=== PATIENT | male | born 1955 | race Caucasian/White ===

== ENCOUNTER → 2017-08-09 | Day surgery (SDC) | payer OTHER ==
[~2017-08-09] MED LIST: FENTANYL CITRATE/PF 100MCG/2 ML INJ ONE; MIDAZOLAM HCL 2 MG/2 ML VIAL ONE; TUMS
== END | disposition home or self-care (01) ==
LOC: OR 10:14
PROVIDERS: ATTEND Internal Medicine Gastroenterology
DX: Z12.11 Encounter for screening for malignant neoplasm of colon (principal); D12.0 Benign neoplasm of cecum; K29.50 Unspecified chronic gastritis without bleeding; K26.9 Duodenal ulcer, unspecified as acute or chronic, without hemorrhage or perforation; K29.80 Duodenitis without bleeding; B37.81 Candidal esophagitis; K57.30 Diverticulosis of large intestine without perforation or abscess without bleeding; K44.9 Diaphragmatic hernia without obstruction or gangrene; K64.1 Second degree hemorrhoids; K21.9 Gastro-esophageal reflux disease without esophagitis; A04.8 Other specified bacterial intestinal infections; I44.0 Atrioventricular block, first degree; R07.89 Other chest pain; R03.0 Elevated blood-pressure reading, without diagnosis of hypertension; Z01.810 Encounter for preprocedural cardiovascular examination; Z68.36 Body mass index [BMI] 36.0-36.9, adult; Z85.820 Personal history of malignant melanoma of skin
CPT/HCPCS: 43239; 45380; 93005; J2250; 45378

== ENCOUNTER → 2018-12-15 | Day surgery (SDC) | payer OTHER ==
[2018-12-14 14:52] LABS: BASOPHILS # (AUTO) 0.1 (0.0-0.1); BASOPHILS % 0.7 % (0.0-1.0); EOSINOPHILS # (AUTO) 0.3 (0.0-0.4); EOSINOPHILS % 2.8 % (0.0-6.0); HEMATOCRIT 45.2 % (38.2-49.6); HEMOGLOBIN 15.3 g/dL (14.0-18.0); LYMPHOCYTES # (AUTO) 1.9 (1.0-3.2); MEAN CORPUSCULAR HEMOGLOBIN 29.4 pg (28-32); MEAN CORPUSCULAR HGB CONC 33.8 g/dL (31-35); MEAN CORPUSCULAR VOLUME 86.9 fL (81-99); MONOCYTES # (AUTO) 0.9 (0.2-0.8); MONOCYTES % 8.1 % (4.4-11.3); NEUTROPHILS # (AUTO) 7.4 (2.1-6.9); PLATELET COUNT 225 x10e3/uL (140-360); RED CELL DISTRIBUTION WIDTH 13.2 % (11.7-14.4)
[2018-12-14 15:09] LABS: ALANINE AMINOTRANSFERASE 36 IU/L (0-55); ALBUMIN 3.8 g/dL (3.5-5.0); ALBUMIN/GLOBULIN RATIO 1.1 (0.8-2.0); ALKALINE PHOSPHATASE 69 IU/L (40-150); ANION GAP 11.7 mmol/L (8-16); BLOOD UREA NITROGEN 12 mg/dL (7-26); BUN/CREATININE RATIO 13 (6-25); CALCIUM 9.3 mg/dL (8.4-10.2); CARBON DIOXIDE 25 mmol/L (22-29); CHLORIDE 103 mmol/L (98-107); CREATININE, SERUM 0.89 mg/dL (0.72-1.25); EST GLOMERULAR FILTRATION RATE > 60 ML/MIN (60-); GLUCOSE 111 mg/dL (74-118); POTASSIUM 3.7 mmol/L (3.5-5.1); SODIUM 136 mmol/L (136-145)
[2018-12-15] VITALS (8 sets, daily range): BP systolic 127–170; BP diastolic 57–98
[~2018-12-15] VITALS: Ht 182.9 cm; Wt 127.0 kg
[~2018-12-15] MED LIST changes: +ASPIRIN 325 MG TAB ONE; +EPTIFIBATIDE 20 ML ONE; +HEPARIN SOD (PORCINE) 1000 UNIT/ML 30ML ONE; +HEPARIN SOD/SOD CHLORIDE 2,000 ML ONE; +IOPAMIDOL 370 MG/ML 200 ML INFUS..BTL INJ ONE; +LIDOCAINE HCL 2% LOCAL 20 ML VIAL ONE; +LOSARTAN POTAS100 MG PO; +NITROGLYCERIN/D5W 200 MCG/ML 250 ML ONE; +SODIUM CHLORIDE 0.9% 1000ML 1,000 ML ONE; +TICAGRELOR 90 MG TABLET ONE; +VERAPAMIL HCL 2.5 MG/ML 2 ML VIAL ONE
--- NOTE | 2018-12-15 13:51 | NUR ---
1351pm Received pt Line Manager #[id number] [facility] , Dr Rutledge, LAD fix Identifier x2. Iv infusing w/o s/s infiltration infusing 100cc/hr. Denies Cp or SOB.Rt Perclose noted w/o ooze. Rt Tr band intact received report from Gayle Sam Monitor Sr/ Resp shallow and regular on room air. Abdomen soft and non tender denies necessity to defecate or urinate. Bilateral PPx4 Side rails up call light at bedside bed in low position. Assist with po intake.Family at bedside . Dr Rutledge explained POC Rt Tr band titration schedule to start at 1600pm. marcelino/venus
--- NOTE | 2018-12-15 14:30 | NUR ---
Rt sheath noted with oozed and 3cm hematoma.Called clinical laboratory service teacher support nurse Ruby Sam held pressure immediately and Víctor geodetic surveyor technologist notified to immediate assess rt groin site. Pressure applied for 55min additional Gal patch per Admitting Manager. Stasis is achieved w/o hematoma currently present. Report ooze to Dr Aamir villanueva to dc at 6pm as scheduled Rt Tr band still scheduled for 1600pm. Call light at reach family remain at bedside ds/rn
--- NOTE | 2018-12-15 16:30 | NUR ---
1630pm noted rt femoral additional bleeding to Gal. Meter Reading Clerk removed patch and placed 2x2 dressing.No additional bleeding noted. vs stable. ds/rn
--- NOTE | 2018-12-15 18:00 | NUR ---
1800 Discharged home .Iv removed site w/o s/s infiltration. Coban with 2x2 dressing.Assist to car per w/c with family charter driver aware of POC and importance of followup. Rt TR band titration was successful and arm splint on wrist and Coban with 2x2 dressing Radial pulse adequate no s/s bleeding. Rt Femoral dressing dry and intact and pedal pulses present. Ds/rn
--- NOTE | 2018-12-16 00:58 | Operative Report ---
DATE OF PROCEDURE: 12/15/2018 SURGEON: Aj Rutledge MD INDICATIONS: Coronary artery disease, unstable angina, and abnormal stress test. PROCEDURES PERFORMED: 1. Left heart catheterization, selective coronary angiography. 2. Percutaneous transluminal coronary angioplasty and stent placed in the proximal and mid left anterior descending artery. 3. Deployment of right wrist TR band and deployment of right groin, Perclose closure device. COMPLICATIONS: None. RECOMMENDATIONS: Dual antiplatelet therapy. Staged intervention on the ramus intermedius coronary artery. DESCRIPTION OF THE PROCEDURE: Access obtained in the right radial artery. Unable to cannulate left coronary artery access, then obtained in the right femoral artery. The patient received 10,000 units of heparin for anticoagulation. The right coronary artery had mild 10%-20% stenosis. Left main widely patent. Proximal and mid left anterior descending artery 80% stenosis. Distal left anterior descending artery 50% stenosis. Circumflex had mild disease. Ramus intermedius 80% stenosis. LV end-diastolic pressure of 15. LV ejection fraction 50%. A decision was made to intervene on the left anterior descending artery. The left main was cannulated using XB3.56-Yakut guiding catheter. A short Runthrough wire was advanced for support. In addition, a 2.5-mm balloon, following which, two overlapping 2.75 x 30 and two 3.0 x 12 mm Resolute Everett drug-eluting stents were deployed without complications. Right groin repaired using less than 10% residual stenosis. Right groin repaired using Perclose closure device. TR band applied. The patient discharged home same day. Aj Rutledge MD KSB/MODL /[id number]
== END | disposition home or self-care (01) ==
LOC: CATH LAB 11:19
PROVIDERS: ATTEND Internal Medicine Interventional Cardiology
DX: I25.110 Atherosclerotic heart disease of native coronary artery with unstable angina pectoris (principal); R94.39 Abnormal result of other cardiovascular function study; Z01.812 Encounter for preprocedural laboratory examination
CPT/HCPCS: 36415; 80053; 85025; 92928; 93458; C1725; C1769 ×3; C1874 ×2; C1887 ×3; J1327; J1644; J2001; J2250; J7030; Q9967

== ENCOUNTER → 2019-01-23 | Day surgery (SDC) | payer OTHER ==
[2019-01-22 11:12] LABS: BASOPHILS # (AUTO) 0.1 (0.0-0.1); BASOPHILS % 0.8 % (0.0-1.0); EOSINOPHILS # (AUTO) 0.4 (0.0-0.4); EOSINOPHILS % 4.2 % (0.0-6.0); HEMATOCRIT 44.5 % (38.2-49.6); HEMOGLOBIN 14.6 g/dL (14.0-18.0); LYMPHOCYTES # (AUTO) 1.4 (1.0-3.2); LYMPHOCYTES % 15.9 % (18.0-39.1); MEAN CORPUSCULAR HEMOGLOBIN 29.1 pg (28-32); MEAN CORPUSCULAR HGB CONC 32.8 g/dL (31-35); MEAN CORPUSCULAR VOLUME 88.8 fL (81-99); MONOCYTES # (AUTO) 0.7 (0.2-0.8); MONOCYTES % 8.2 % (4.4-11.3); NEUTROPHILS # (AUTO) 6.1 (2.1-6.9); NEUTROPHILS % 70.6 % (38.7-80.0); PLATELET COUNT 193 x10e3/uL (140-360); RED BLOOD COUNT 5.01 x10e6/uL (4.3-5.7); RED CELL DISTRIBUTION WIDTH 13.2 % (11.7-14.4)
[2019-01-22 11:25] LABS: INR 0.92; PROTHROMBIN TIME 12.9 seconds (11.9-14.5)
[2019-01-22 11:29] LABS: ALANINE AMINOTRANSFERASE 38 IU/L (0-55); ALBUMIN 3.6 g/dL (3.5-5.0); ALBUMIN/GLOBULIN RATIO 1.1 (0.8-2.0); ALKALINE PHOSPHATASE 91 IU/L (40-150); ANION GAP 10.7 mmol/L (8-16); BLOOD UREA NITROGEN 8 mg/dL (7-26); BUN/CREATININE RATIO 9 (6-25); CALCIUM 9.1 mg/dL (8.4-10.2); CARBON DIOXIDE 24 mmol/L (22-29); CHLORIDE 107 mmol/L (98-107); CHOL/HDL RATIO 3.2 (3.9-4.7); CHOLESTEROL 114 MD/DL (0-199); CREATININE, SERUM 0.86 mg/dL (0.72-1.25); EST GLOMERULAR FILTRATION RATE > 60 ML/MIN (60-); GLUCOSE 112 mg/dL (74-118); HDL CHOLESTEROL 36 MG/DL (40-60); LDL CHOLESTEROL 57 MG/DL (60-130); POTASSIUM 3.7 mmol/L (3.5-5.1); SODIUM 138 mmol/L (136-145); TRIGLYCERIDES 106 MG/DL (0-149)
[~2019-01-23] VITALS: Ht 182.9 cm; Wt 127.0 kg
[2019-01-23] VITALS (15 sets, daily range): BP systolic 101–155; BP diastolic 68–88
[~2019-01-23] MED LIST changes: -ASPIRIN 325 MG TAB ONE; +BIVALRIUDIN 250 MG/VIAL VIAL IV ONE; +BRILINTA90 MG PO; -EPTIFIBATIDE 20 ML ONE; -HEPARIN SOD (PORCINE) 1000 UNIT/ML 30ML ONE; +LIPITOR10 MG PO; +MEPERIDINE HCL INJ 50 MG/ML INJ ONE; -NITROGLYCERIN/D5W 200 MCG/ML 250 ML ONE; +PROMETHAZINE HCL (IM) 25 MG/ML VIAL ONE; +SODIUM CHLORIDE 0.9% 50ML 50 ML ONE; -VERAPAMIL HCL 2.5 MG/ML 2 ML VIAL ONE
--- NOTE | 2019-01-23 08:00 | NUR ---
Received to chemical lab technician pre-op room 7 ambulatory. A, A, Ox3, VSS, denies pain, kiah. pedal pulses palp. strong. 20g s/l started to left hand, tammie. well. No complaints, at bedside.
--- NOTE | 2019-01-23 08:38 | NUR ---
0838am Received pt to rm #[id number] Identifierx2. [facility] Rt Groin Perclose site with Gal patch site w/o gross signs of signs of pain,pallor,pressure or dysrhythmia. Multiple fix of stent circuflx. Dr. Rutledge. Iv infusing w/o s/s infiltration. Resp shallow and regular. Sat 97% room air. Abdomen soft and non tender. Denies necessity defecate or urinate. 1000am urinated. Offered po intake. Discharge papers reviewed and signed has copies of POC aware of importance to f/o 2wks. 1400pm HOB elevated. Rt Perclose site remains intact No gross signs of pain,pallor,pressure of dysrhythmia. Iv removed site w/o s/s infiltration Coban dressing in place dc home in private car.Escorted to car with [facility] employee. Aware of importance of followup careHas dc papers tolerating po intake and back to baseline orientation.Rt Site w/o hematoma or bleeding. No gross signs of pain ,pallor,pressure or dysrhythmia. ds/rn
--- NOTE | 2019-01-23 11:26 | Operative Report ---
DATE OF PROCEDURE: 01/23/2019 SURGEON: Aj Rutledge MD REPORT TITLE: Cardiac Member Of Technical Staff Procedure. INDICATION: Coronary artery disease, unstable angina, staged intervention on the ramus intermedius artery. PROCEDURES PERFORMED: 1. Left heart catheterization, selective coronary angiography. 2. Stent placed in the ramus intermedius coronary artery. 3. Deployment of right groin Perclose. COMPLICATIONS: None. RECOMMENDATIONS: Dual antiplatelet therapy for at least six months. DESCRIPTION OF PROCEDURE: Access obtained in the right femoral artery. A 6-Maori sheath was placed. The patient received intravenous Angiomax and oral Brilinta for anticoagulation. The left main was cannulated using an XB3.56-Maori guiding catheter. Short Hi-Torque [employer] flex wire was advanced across the lesion in the ramus intermedius, which was 95%. Primary stent 2.25 x 18 mm Resolute Everett deployed at 18 atmospheres, excellent end result, less than 10% residual stenosis. SILVA-3 flow. No complications. Right groin sheath was removed and a Perclose applied. The patient was observed in the hospital 6 hours and discharged home same day. Aj Rutledge MD KSB/MODL /[id number]
--- NOTE | 2019-01-23 14:00 | NUR ---
Discharge home no gross signs of pain,pallor,pressure or dysrhythmia. Per w/c and family racing car driver Site stable iv out. Has copies dc papers and knows importance f/o care. No C/o CP or SOB. ds/rn
--- NOTE | 2019-01-23 14:05 | NUR ---
1405 Stable vs discharged home ambulated to bathroom and dressed. Iv removed site healthy w/o s/s infiltration.. Rt groin Perclose site w/o gross signs pain, pallor,hematoma or bleeding. To car per w/c and [facility] escort. Has dc papers and aware of importance f/o up care. To private car with salesperson driver. ds/rn
== END | disposition home or self-care (01) ==
LOC: CATH LAB 07:49
PROVIDERS: ATTEND Internal Medicine Interventional Cardiology
DX: I25.110 Atherosclerotic heart disease of native coronary artery with unstable angina pectoris (principal); Z01.812 Encounter for preprocedural laboratory examination
CPT/HCPCS: 36415; 80053; 80061; 85025; 85610; 92928; 93454; C1725; C1769 ×2; C1874; C1887; J0583; J2001; J2175; J2250; J2550; J7030; Q9967

== ENCOUNTER → 2019-08-01 | Outpatient (CLI) | payer OTHER ==
[~2019-08-01] MED LIST changes: -BIVALRIUDIN 250 MG/VIAL VIAL IV ONE; -FENTANYL CITRATE/PF 100MCG/2 ML INJ ONE; -HEPARIN SOD/SOD CHLORIDE 2,000 ML ONE; -IOPAMIDOL 370 MG/ML 200 ML INFUS..BTL INJ ONE; -LIDOCAINE HCL 2% LOCAL 20 ML VIAL ONE; -MEPERIDINE HCL INJ 50 MG/ML INJ ONE; -MIDAZOLAM HCL 2 MG/2 ML VIAL ONE; -PROMETHAZINE HCL (IM) 25 MG/ML VIAL ONE; -SODIUM CHLORIDE 0.9% 1000ML 1,000 ML ONE; -SODIUM CHLORIDE 0.9% 50ML 50 ML ONE; -TICAGRELOR 90 MG TABLET ONE
--- NOTE | 2019-08-01 16:30 | Diagnostic Imaging Report ---
Testicular ultrasound, 08/01/2019. History: Hydrocele. Comparison: None available. Discussion: Evaluation of the scrotum was performed in the transverse and longitudinal planes. Color Doppler and spectral wave form analysis was performed bilaterally. The testes are normal in size and echogenicity bilaterally, measuring 4.7 x 2.6 x 3.9 cm on the right and 4.7 x 3.1 x 3.4 cm on the left. There is no evidence of a mass. There is moderate amount of hydrocele bilaterally. Normal and symmetrical flow is present within both testes. The epididymi are normal, measuring 1.0 cm bilaterally. IMPRESSION: Moderate bilateral hydroceles. Otherwise unremarkable exam. Signed by: Aki De La Fuente on 08/01/2019 4:27 PM
== END ==
LOC: US 14:56
PROVIDERS: ATTEND Urology
DX: N43.3 Hydrocele, unspecified (principal)
CPT/HCPCS: 76870; 93976

== ENCOUNTER → 2019-09-13 | Outpatient (CLI) | payer OTHER ==
--- NOTE | 2019-09-13 11:28 | Diagnostic Imaging Report ---
Ultrasound of the Kidneys, 09/13/2019. Clinical History: Kidney cyst. Discussion: Sonographic evaluation of the kidneys is performed. Right kidney: 13.1 cm in length, normal in size, with cortical thickness of 2.2 cm. Normal cortical echogenicity. There is a 1.4 x 0.9 x 1.3 cm cyst arising from the medial kidney. No shadowing calculus. No hydronephrosis. Left kidney: 12.5 cm in length, normal in size, with cortical thickness of 2.9 cm. Normal cortical echogenicity. There is a 2.0 x 1.7 x 1.8 cm cyst arising from the lower pole of the left kidney. No shadowing calculus. No hydronephrosis. Limited Doppler evaluation demonstrates normal color Doppler flow within bilateral renal rosy. Fluid: No perinephric fluid. Bladder: Unremarkable. IMPRESSION: Bilateral renal cysts without suspicious features. Signed by: Dani Luna MD on 09/13/2019 11:24 AM
== END ==
LOC: US 07:42
PROVIDERS: ATTEND Urology
DX: N28.1 Cyst of kidney, acquired (principal)
CPT/HCPCS: 76770